=== PATIENT | male | born 1945 | race Caucasian/White ===

== ENCOUNTER 2016-07-14 18:57 | Emergency (ER) | payer MEDICARE, OTHER ==
[2016-07-14 18:29] LABS: ALLENS TEST Pos; BE (BASE EXCESS) 2.3 MEQ/L (0 +/- 2.5); HCO3 (ACTUAL BICARBONATE) 25.1 MEQ/L (23-27); HEMOBLOGIN CONTENT 13.5 G/DL (14-18); INSTRUMENT SERIAL # 8087; METHEMOGLOBIN 0.2 % (0-3); O2 CONTENT 18.4 VOL% (18-24); OPERATOR ID 31928; PCO2 (CO2 TENSION) 33 MMHG (35-45); PO2 (O2 TENSION) 97 MMHG (79-93); SAMPLE Arterial
[2016-07-14 18:40] LABS: BASOPHILS 0.1 %; BASOPHILS ABSOLUTE 0.01 10/3/uL (0.0-0.16); EOSINOPHILS 1.8 %; EOSINOPHILS ABSOLUTE 0.14 10/3/uL (0.0-0.53); IMMATURE GRANULOCYTES ABSOLUTE 0.23 10/3/uL (0.0-0.11); LYMPHOCYTES 7.5 %; LYMPHOCYTES ABSOLUTE 0.57 10/3/uL (0.67-4.30); MEAN PLATELET VOLUME 10.2 fL (9.2-13.0); MONOCYTES 10.9 %; MONOCYTES ABSOLUTE 0.83 10/3/uL (0.21-1.20); NEUTROPHILS 76.7 %; NEUTROPHILS ABSOLUTE 5.85 10/3/uL (2.02-8.40); RBC DISTRIBUTION WIDTH 14.4 % (12.0-16.0); RED CELL COUNT 4.42 10/6/uL (4.7-6.1)
[2016-07-14 18:41] LABS: ER CBC TAT 0 Hrs 05 Mins; HEMATOCRIT 39.4 % (40.0-51.0); HEMOGLOBIN 13.8 g/dL (13.6-17.8); MANUAL DIFF NO %; MEAN CORPUSCULAR HEMOGLOB 31.2 pg (26.0-34.0); MEAN CORPUSCULAR VOLUME 89.1 fL (80-100); PLATELET COUNT 269 10/3/uL (150-400); WHITE BLOOD CELLS 7.6 10/3/uL (4.5-10.5)
[2016-07-14 18:47] LABS: INTERNATIONAL NORMAL RATI 1.1 UNITS (-); PARTIAL THROMBO TIME 29.4 SEC (22.5-37.2); PROTIME (NOT ORD) 14.3 SEC (12.0-14.5)
[2016-07-14 18:47] LABS: ASCORBIC ACID (UR NOT ORDER) NEG (NEG); BILIRUBIN, URINE NEGATIVE (NEG); ER URINALYSIS TAT 0 Hrs 24 Mins; KETONE, URINE NEGATIVE (NEG); LEUKOCYTE ESTERASE(NOT OR NEG (NEG); NITRITE (URINE) NEG (NEG); WBC (NOT ORDERED) (RFLEX) 1 (0-5)
[2016-07-14 18:57] LABS: BUN (BLOOD UREA NITROGEN) 17 MG/DL (6-23); CALCIUM, SERUM 8.8 MG/DL (8.5-10.4); CHEST PAIN PROFILE TAT 0 Hrs 21 Mins; CHLORIDE, SERUM 105 MMOL/L (96-112); CO2 (CARBON DIOXIDE) 29 MMOL/L (24-34); CREATININE 0.86 MG/DL (0.70-1.30); GFR AFRICAN AMERICAN 103 ML/MIN (>=60); GFR NON AFRICAN AMERICAN 88 ML/MIN (>=60); SODIUM, SERUM 142 MMOL/L (135-148); TROPONIN I 0.03 NG/ML (<0.05)
[~2016-07-14 18:57] MED LIST: AMINO ACID PO; BACTRONASA NAS; BREO ELLIPTA INH; FLOMAX4 PO; GLUTAMINE PO; HYCODAN1 M1 PO; MAGNESIUM CITRATE PO; MCT OIL PO; MEG40 PO; MIRALAXPKT PO; MULTIPLE VIT PO; PCET PO; PERCOCET1 TA4 PO; PRILOSEC OTC20 MG PO; PROAIR HFA INH; PROBIOTIC PO; STAXYN10 MG PO
[2016-07-14 18:58] LABS: GLUCOSE, SERUM 115 MG/DL (60-99)
== END 2016-07-14 19:41 | disposition home or self-care (01) ==
LOC: ER 18:57
PROVIDERS: Emergency Medicine
DX: C34.90 Malignant neoplasm of unspecified part of unspecified bronchus or lung (principal); R11.0 Nausea; F41.9 Anxiety disorder, unspecified; J44.9 Chronic obstructive pulmonary disease, unspecified; Z87.891 Personal history of nicotine dependence; Z79.899 Other long term (current) drug therapy
CPT/HCPCS: 36600; 71010; 80048; 81001; 82805; 83735; 84484; 85025; 85610; 85730; 99285